=== PATIENT | female | born 1965 | race American Indian/Alaskan Native ===

== ENCOUNTER 2019-10-12 08:53 | Emergency (ER) | payer BC ==
[2019-10-12 08:59] VITALS: BP 188/103
--- NOTE | 2019-10-12 09:00 | Emergency Department Report ---
Stated Complaint: L THUMB INJURY Time Seen by Provider: 10/12/19 08:55 - HPI History of Present Illness: 54 y/o female comes in for non traumatic left thumb pain times 2 day. - ROS Review of Systems: left thumb pain - Exam Physical Exam: AxO times 3 NAD left thumb TTP. mild swelling MSE screening note: Focused history and physical exam performed. Due to findings the following was ordered: Patient stable with FROM of thumb can follow up at urgent care ED Disposition for MSE Condition: Stable
== END 2019-10-12 09:48 | disposition home or self-care (01) ==
LOC: ED 08:53
DX: M79.645 Pain in left finger(s) (principal); M79.89 Other specified soft tissue disorders
CPT/HCPCS: 99281

== ENCOUNTER 2021-07-07 15:40 | Inpatient (IN) | payer SELFPAY ==
[2021-07-07] MEDS ORDERED: ACETAMINOPHEN 325 MG TAB ONE (16:19)
[2021-07-07] MEDS ORDERED: ACETAMINOPHEN 325 MG TAB PO ONE (16:19)
--- NOTE | 2021-07-07 16:19 | Event Note ---
ED Screening Note Date of service: 07/07/21 Time: 16:14 ED Screening Note: 56-year-old -[place] female presents to the emergency room complaining of dysuria urinary urgency frequency x4 days. Patient reports pain is worse on the right side. Has had some nausea was noted to have fever. She does have a past medical history of hypertension tachycardic and depression. Unfortunate patient has been unemployed and without insurance and has not been able to follow-up on her chronic diseases. Patient is menopausal. This initial assessment/diagnostic orders/clinical plan/treatment(s) is/are subject to change based on patients health status, clinical progression and re- assessment by fellow clinical providers in the ED. Further treatment and workup at subsequent clinical providers discretion. Patient/guardian urged not to elope from the ED as their condition may be serious if not clinically assessed and managed. Initial orders include:
[2021-07-07 16:50] LABS: Bacteria,Urine 1+ /HPF (Negative); Bilirubin,Urine NEG (Negative); Blood,Urine MOD (Negative); Color,Urine Yellow (Yellow); Urobilinogen,Urine < 2.0 mg/dL (<2.0)
[2021-07-07 16:59] LABS: WBC,Urine > 182.0 /HPF (0.0-6.0)
--- NOTE | 2021-07-07 17:04 | Emergency Department Report ---
ED Female HPI - General Chief complaint: Urogenital-Female Stated complaint: POSS UTI Time Seen by Provider: 07/07/21 16:58 Source: patient Mode of arrival: Ambulatory - History of Present Illness Initial comments: 56-year-old female with a past medical history of hypertension and sinus tachycardia and depression presents to the ER today with complaints of UTI symptoms. Patient states that her symptoms started about 4 days ago. She reports urinary urgency, dysuria, urinary frequency, suprapubic abdominal pain and right flank pain. She reports nausea but no vomiting. She denies any apparent fever or chills at home. She denies any bowel changes. She denies any abnormal vaginal discharge. She states that her last menstrual cycle was May 2021. She states that she is not . She is not currently on any control. She does not have a history of recurrent UTIs. Patient states that she has been noncompliant with her blood pressure medications and ant idepressants since August 2021. Complaint: dysuria -: Gradual, days(s) (4) - Related Data Allergies Allergy/AdvReac Type Severity Reaction Status Date / Time No Known Allergies Allergy Unverified 10/12/19 08:55 ED Review of Systems ROS: Stated complaint: POSS UTI Other details as noted in HPI Comment: All other systems reviewed and negative Constitutional: denies: chills, fever Eyes: denies: eye pain, eye discharge, vision change ENT: denies: ear pain, throat pain, dental pain, hearing loss, epistaxis, congestion Respiratory: denies: cough, orthopnea, shortness of breath, SOB with exertion, SOB at rest, wheezing Cardiovascular: denies: chest pain, palpitations, dyspnea on exertion, edema, syncope, paroxysmal nocturnal dyspnea Endocrine: no symptoms reported Gastrointestinal: abdominal pain. denies: nausea, vomiting, diarrhea, constipation, hematemesis, melena, hematochezia Genitourinary: urgency, dysuria, frequency. denies: hematuria, abnormal menses, dyspareunia Musculoskeletal: back pain Skin: denies: rash, lesions, change in color, change in hair/nails, pruritus Neurological: denies: headache, weakness, numbness, paresthesias, confusion, abnormal gait, vertigo Psychiatric: denies: anxiety, depression, auditory hallucinations, visual hallucinations, homicidal thoughts, suicidal thoughts Hematological/Lymphatic: denies: easy bleeding, easy bruising ED Past Medical Hx - Past Medical History Previous Medical History?: Yes Hx Hypertension: Yes - Surgical History Additional Surgical History: d&c - Social History Smoking Status: Current Every Day Smoker Substance Use Type: Prescribed ED Physical Exam - General Limitations: No Limitations General appearance: alert, in no apparent distress - Head Head exam: Present: atraumatic, normocephalic, normal inspection - Eye Eye exam: Present: normal appearance, PERRL, EOMI Pupils: Present: normal accommodation - ENT ENT exam: Present: normal exam, mucous membranes moist, TM's normal bilaterally - Neck Neck exam: Present: normal inspection, full ROM - Respiratory Respiratory exam: Present: normal lung sounds bilaterally. Absent: respiratory distress, wheezes, rales, rhonchi - Cardiovascular Cardiovascular Exam: Present: regular rate, normal rhythm, normal heart sounds - GI/Abdominal GI/Abdominal exam: Present: soft, tenderness (Suprapubic). Absent: distended, rebound, rigid - Back Exam Back exam: Present: normal inspection, full ROM. Absent: CVA tenderness (R), CVA tenderness (L) - Neurological Exam Neurological exam: Present: alert, oriented X3, CN II-XII intact, normal gait - Psychiatric Psychiatric exam: Present: normal affect, normal mood ED Course Vital Signs 07/07/21 07/07/21 15:58 20:12 Temperature 100.1 F H 101.8 F H Pulse Rate 125 H 148 H Respiratory 18 20 Rate Blood Pressure 196/100 192/106 O2 Sat by Pulse 100 99 Oximetry ED Medical Decision Making - Lab Data Result diagrams: 07/07/21 17:18 07/07/21 17:18 - Radiology Data Radiology results: report reviewed Patient: EULALIO CAPONE MR#: [id number] 2 : 1965 Acct:[id number] Age/Sex: 56 / F ADM Date: 07/07/21 Loc: ED Attending Dr: Ordering Physician: TIMO DUGAN Date of Service: 07/07/21 Procedure(s): CT abdomen pelvis wo con Accession Number(s): [id number] cc: TIMO DUGAN CT abdomen pelvis wo con INDICATION / CLINICAL INFORMATION: Right flank pain/fever. TECHNIQUE: Routine CT abdomen pelvis without contrast All CT scans at this location are performed using CT dose reduction for ALARA by means of automated exposure control. COMPARISON: None available. FINDINGS: Abdomen and pelvis: Liver is borderline fatty. The gallbladder, spleen, pancreas adrenal glands are unremarkable. There is some subtle asymmetric perinephric stranding involving the right kidney and proximal right collecting system with respect to the left kidney. No obstructive ureteral calculus identified. Scattered atherosclerotic calcification throughout the abdominal aorta. No bowel obstruction. The appendix is unremarkable. Urinary bladder is partially fluid distended. There appears to be slight urinary bladder wall thickening. IMPRESSION: Right-sided kidney and ureteral stranding is suspicious for underlying inflammation. Pyelonephritis is not excluded. Slight urinary bladder wall thickening could be seen with infectious cystitis. Signer Name: Miguel Ángel Santo MD Signed: 07/07/2021 7:47 PM Workstation Name: [id number] Transcribed By: REGGIE Dictated By: Miguel Ángel Santo MD Electronically Authenticated By: Miguel Ángel Santo MD Signed Date/Time: 07/07/211946 DD/ 43 TD/TT: - Medical Decision Making 2102: Patient work up is concerning for pyelonephritis on CT abdomen and pelvis with elevated white count of 13, patient also remains febrile despite oral Tylenol and she is also tachycardic. Blood cultures and lactic acid ordered. Patient does have an underlying history of sinus tachycardia and used to be on a tenolol, but suspect that the fever of 101 is contributing to her tachycardia. Patient blood pressure also remains elevated. Patient does have a history of hypertension but has been noncompliant with her medications since August. Patient initial blood sugar was 398, patient denied any history of diabetes, and the last time she ate was at 10:00 this morning. Her repeat BS after 1 L of IV fluids was 314, 5 units of insulin was ordered IV. Case discussed with Dr Escoto, he agree that patient needs to be admitted. He recommends giving patient had a IV fluid bolus and IV medications for her BP. IV labetalol ordered. Patient currently sitting in chair comfortably. She is not toxic or in any s ignificant distress at this time. Discussed all lab results/CT results, and reason for admission with patient. Pt expressed understand and agrees with plan. 2130: Case discussed with ANGUS Clark hospitalist working with Dr Baker (Hospitalist) for admission. Critical care attestation.: If time is entered above; I have spent that time in minutes in the direct care of this critically ill patient, excluding procedure time. ED Disposition Clinical Impression: Pyelonephritis, Diabetes mellitus, new onset, Uncontrolled hypertension, Non compliance w medication regimen Disposition: ADMITTED INPATIENT Is pt being admited?: Yes Does the pt Need Aspirin: No Instructions: Diabetes Mellitus Type 2 in Adults (ED), Hypertension (ED) Referrals: PRIMARY CARE, [Primary Care Provider] - 3-5 Days
[2021-07-07 17:58] LABS: Alanine Aminotransferase 15 units/L (7-56); Albumin 4.3 g/dL (3.9-5); Blood Urea Nitrogen 11 mg/dL (7-17); Calcium 9.8 mg/dL (8.4-10.2); Hemolysis Index 6
[2021-07-07 18:03] LABS: BUN/Creatinine Ratio 16
[2021-07-07 18:11] LABS: Basophils # (Auto) 0.1 K/mm3 (0.0-0.1); Basophils % (Auto) 0.4 % (0.0-1.8); Eosinophils # (Auto) 0.1 K/mm3 (0.0-0.4); Eosinophils % (Auto) 0.4 % (0.0-4.3); Hematocrit 44.8 % (30.3-42.9); Hemoglobin 15.3 gm/dl (10.1-14.3); Lymphocytes # (Auto) 3.5 K/mm3 (1.2-5.4); Lymphocytes % (Auto) 26.4 % (13.4-35.0); Mean Corpuscular HGB Conc 34 % (30-34); Mean Corpuscular Volume 94 fl (79-97); Monocytes # (Auto) 1.2 K/mm3 (0.0-0.8); Monocytes % (Auto) 8.8 % (0.0-7.3); Platelet Count 267 K/mm3 (140-440); Red Blood Count 4.75 M/mm3 (3.65-5.03); Red Cell Distribution Width 13.2 % (13.2-15.2)
[2021-07-07] MEDS ORDERED: SODIUM CHLORIDE 0.9% 1000 ML 2,000 ML IV ONE (18:42)
[2021-07-07] MEDS ORDERED: SODIUM CHLORIDE 0.9% 1000 ML 1,000 ML IV ONE (18:43)
[2021-07-07] MEDS ORDERED: ONDANSETRON 4 MG/2 ML INJ IV ONE (18:43)
[2021-07-07] MEDS ORDERED: MORPHINE 4 MG/1 ML INJ IV ONE (18:43)
[2021-07-07] MEDS ORDERED: cefTRIAXone/NS 1 GM/50 ML 1 GM/50 ML BAG IV ONE (18:44)
[2021-07-07] MEDS ORDERED: INSULIN REGULAR, HUMAN 100 UNITS/1 ML IV ONE (18:44)
--- NOTE | 2021-07-07 19:51 | Cat Scan Report ---
CT abdomen pelvis wo con INDICATION / CLINICAL INFORMATION: Right flank pain/fever. TECHNIQUE: Routine CT abdomen pelvis without contrast All CT scans at this location are performed using CT dose reduction for ALARA by means of automated exposure control. COMPARISON: None available. FINDINGS: Abdomen and pelvis: Liver is borderline fatty. The gallbladder, spleen, pancreas adrenal glands are u nremarkable. There is some subtle asymmetric perinephric stranding involving the right kidney and pro ximal right collecting system with respect to the left kidney. No obstructive ureteral calculus ident ified. Scattered atherosclerotic calcification throughout the abdominal aorta. No bowel obstruction. The hi endix is unremarkable. Urinary bladder is partially fluid distended. There appears to be slight urina ry bladder wall thickening. IMPRESSION: Right-sided kidney and ureteral stranding is suspicious for underlying inflammation. Pyel onephritis is not excluded. Slight urinary bladder wall thickening could be seen with infectious cyst itis. Signer Name: Miguel Ángel Santo MD Signed: 07/07/2021 7:47 PM Workstation Name: [id number]
[2021-07-07] MEDS ORDERED: IBUPROFEN 600 MG TAB PO ONE (20:19)
[2021-07-07] MEDS ORDERED: cloNIDine 0.2 MG TAB PO ONE (20:22)
[2021-07-07] MEDS ORDERED: ALUM-MAG HYDROXIDE-SIMETHICONE 200-200-20MG/5ML ORAL LIQD 30 ML PO PRN (23:16)
[2021-07-07] MEDS ORDERED: NALOXONE 0.4 MG/1 ML INJ IV PRN (23:16)
[2021-07-07] MEDS ORDERED: MAGNESIUM HYDROXIDE (MOM) ORAL LIQD UDC PO PRN (23:16)
[2021-07-07] MEDS ORDERED: oxyCODONE /ACETAMINOPHEN 5-325MG TAB PO PRN (23:16)
[2021-07-07] MEDS ORDERED: SENNOSIDES 8.6 MG TAB PO PRN (23:16)
[2021-07-07] MEDS ORDERED: ACETAMINOPHEN 325 MG TAB PO PRN (23:16)
[2021-07-07] MEDS ORDERED: METOCLOPRAMIDE 10 MG/2 ML INJ IV PRN (23:16)
[2021-07-07] MEDS ORDERED: ONDANSETRON 4 MG/2 ML INJ IV PRN (23:16)
[2021-07-07] MEDS ORDERED: MORPHINE 2 MG/1 ML INJ IV PRN (23:16)
[2021-07-07] MEDS ORDERED: ALBUTEROL 2.5 MG/3 ML NEBU IH PRN (23:16)
[2021-07-07] MEDS ORDERED: hydrALAZINE 20 MG/1 ML INJ IV PRN (23:25)
[2021-07-07] MEDS ORDERED: traZODone 50 MG TAB PO PRN (23:25)
--- NOTE | 2021-07-07 23:34 | History and Physical Report ---
History of Present Illness Date of examination: 07/07/21 Date of admission: 07/07/21 21:28 Chief complaint: flank abdominal pain Burning on Urination History of present illness: This is a 56-year-old female seen in ED at bedside. She came to the emergency room with chief complaint of pain and burning sensation on urination and flank pain. She has a past medical history of hypertension, sinus tachycardia, and depression. Patient states that her symptoms started about 4 days ago. She also reports urinary urgency, dysuria, urinary frequency, suprapubic abdominal pain. She reports nausea but no vomiting. She denies any apparent fever or chills at home. She admits to tobacco use about half pack daily, she denies any abnormal vaginal discharge. Reviewed the medical record, medication administration, and vital signs. Patient blood pressure is elevated 190s systolic notes her heart rate is elevated. Also patient blood sugar 386 in ED and lactic acid 2.50. Patient admits that she has been noncompliant with her blood pressure medication and antibiotics anxiety medication. Complication of noncompliance see explained to patient. Past History Past Medical History: diabetes, hypertension Past Surgical History: No surgical history Social history: lives with family, smoking, full code. denies: alcohol abuse, IV drug use Family history: no significant family history Medications and Allergies Allergies Allergy/AdvReac Type Severity Reaction Status Date / Time No Known Allergies Allergy Unverified 10/12/19 08:55 Active Meds: Active Medications Acetaminophen (Acetaminophen 325 Mg Tab) 650 mg PO Q4H PRN PRN Reason: Pain MILD(1-3)/Fever >100.5/CERDA Acetaminophen (Acetaminophen 325 Mg Tab) 650 mg PO Q6H PRN PRN Reason: Pain, Mild (1-3) Al Hydrox/Mg Hydrox/Simethicone (Alum-Mag Hydroxide-Simethicone [phone]/5ml Oral Liqd 30 Ml) 30 ml PO Q4H PRN PRN Reason: Indigestion Albuterol (Albuterol 2.5 Mg/3 Ml Nebu) 2.5 mg IH Q4HRT PRN PRN Reason: Shortness Of Breath Atenolol (Atenolol 50 Mg Tab) 50 mg PO QDAY MITZY Enoxaparin Sodium (Enoxaparin 40 Mg/0.4 Ml Inj) 40 mg SUB-Q QDAY MITZY Famotidine (Famotidine 20 Mg/2 Ml Inj) 20 mg IV BID [facility] Hydralazine HCl (Hydralazine 20 Mg/1 Ml Inj) 5 mg IV Q4HR PRN PRN Reason: Hypertension Sodium Chloride (Nacl 0.9% 1000 Ml) 1,000 mls @ 42 mls/hr IV DIRECT MITZY Ceftriaxone Sodium (Rocephin/Ns 1 Gm/50 Ml) 1 gm in 50 mls @ 100 mls/hr IV Q24H [facility]; Protocol Stop: 07/10/21 00:14 Insulin Human Lispro (Insulin Lispro 100 Unit/Ml) 0 unit SUB-Q ACHS MITZY; Protocol Magnesium Hydroxide (Magnesium Hydroxide (Mom) Oral Liqd Udc) 30 ml PO Q4H PRN PRN Reason: Constipation Metoclopramide HCl (Metoclopramide 10 Mg/2 Ml Inj) 10 mg IV Q6H PRN PRN Reason: Nausea And Vomiting Morphine Sulfate (Morphine 2 Mg/1 Ml Inj) 2 mg IV Q4H PRN PRN Reason: Pain, Moderate (4-6) Naloxone HCl (Naloxone 0.4 Mg/1 Ml Inj) 0.1 mg IV Q2MIN PRN PRN Reason: Res Rate </= 8 or 02 SAT < 92% Ondansetron HCl (Ondansetron 4 Mg/2 Ml Inj) 4 mg IV Q8H PRN PRN Reason: Nausea And Vomiting Oxycodone/Acetaminophen (Oxycodone /Acetaminophen 5-325mg Tab) 1 tab PO Q6H PRN PRN Reason: Pain, Moderate (4-6) Senna (Sennosides 8.6 Mg Tab) 8.6 mg PO Q12HR PRN PRN Reason: Constipation Sodium Chloride (Sodium Chloride 0.9% 10 Ml Flush Syringe) 10 ml IV BID [facility] Trazodone HCl (Trazodone 50 Mg Tab) 50 mg PO QHS PRN PRN Reason: Insomnia Review of Systems Constitutional: fatigue, weakness Ears, nose, mouth and throat: no epistaxis, no bleeding gums Cardiovascular: no shortness of breath Gastrointestinal: abdominal pain, nausea, no coffee ground emesis, no melena Genitourinary Female: pelvic pain, flank pain, dysuria, urinary frequency, urgency Rectal: no hemorrhoids Musculoskeletal: no myalgias, no atrophy Integumentary: no rash, no pruritis, no redness Psychiatric: no suicidal ideation, no disorientation, no hallucinations Hematologic/Lymphatic: no easy bruising, no easy bleeding Allergic/Immunologic: no urticaria, no allergic rhinitis Exam - Constitutional Vitals: Temp Pulse Resp BP Pulse Ox 101.8 F H 148 H 20 192/106 99 07/07/21 20:12 07/07/21 20:12 07/07/21 20:12 07/07/21 20:12 07/07/21 20:12 General appearance: Present: mild distress, obese - EENT Eyes: Present: PERRL ENT: hearing intact, clear oral mucosa - Neck Neck: Present: supple, normal ROM - Respiratory Respiratory effort: normal Respiratory: bilateral: CTA - Cardiovascular Heart Sounds: Present: S1 & S2. Absent: rub, click - Extremities Extremities: pulses symmetrical, No edema Peripheral Pulses: within normal limits - Abdominal General gastrointestinal: Present: soft, tender, non-distended, normal bowel sounds, other (Flank pain on palpation) Female genitourinary: Present: normal - Integumentary Integumentary: Present: clear, warm, dry - Musculoskeletal Musculoskeletal: gait normal, strength equal bilaterally - Psychiatric Psychiatric: appropriate mood/affect, intact judgment & insight, cooperative, other (Anxiety disorder) - Neurologic Neurologic: CNII-XII intact, moves all extremities - Allied Health Allied health notes reviewed: nursing Results - Labs CBC & Chem 7: 07/07/21 17:18 07/07/21 17:18 Labs: Abnormal lab results 07/07/21 07/07/21 07/07/21 Range/Units 17:18 17:18 18:38 WBC 13.4 H (4.5-11.0) K/mm3 Hgb 15.3 H (10.1-14.3) gm/dl Hct 44.8 H (30.3-42.9) % Love % (Auto) 8.8 H (0.0-7.3) % Love # (Auto) 1.2 H (0.0-0.8) K/mm3 Seg Neutrophils # 8.6 H (1.8-7.7) K/mm3 Sodium 133 L (137-145) mmol/L Carbon Dioxide 20 L (22-30) mmol/L Glucose 386 H (65-100) mg/dL POC Glucose 314 H (70-105) mg/dL Lactic Acid (0.7-2.0) mmol/L Urine WBC (Auto) (0.0-6.0) /HPF 07/07/21 07/07/21 07/07/21 Range/Units 20:14 20:22 Unknown WBC (4.5-11.0) K/mm3 Hgb (10.1-14.3) gm/dl Hct (30.3-42.9) % Love % (Auto) (0.0-7.3) % Love # (Auto) (0.0-0.8) K/mm3 Seg Neutrophils # (1.8-7.7) K/mm3 Sodium (137-145) mmol/L Carbon Dioxide (22-30) mmol/L Glucose (65-100) mg/dL POC Glucose 320 H (70-105) mg/dL Lactic Acid 2.50 H* (0.7-2.0) mmol/L Urine WBC (Auto) > 182.0 H (0.0-6.0) /HPF Assessment and Plan - Patient Problems (1) Pyelonephritis Current Visit: Yes Status: Acute Plan to address problem: Started on antibiotic and IV hydration Blood and urine culture follow-up with results CT of the abdomen/pelvispositive for pyelonephritis (2) Uncontrolled hypertension Current Visit: Yes Status: Acute Plan to address problem: Monitor blood pressure Resume home antihypertensive As needed hydralazine (3) Diabetes mellitus, new onset Current Visit: Yes Status: Acute Plan to address problem: Monitor blood sugar with sliding scale protocol Patient is normal no need home anti hypoglycemia Check hemoglobin A1c patient advised to follow-up with her primary care physician post discharge (4) Non compliance w medication regimen Current Visit: Yes Status: Acute Plan to address problem: Discussed importance of compliance with medical regimen Patient voiced understanding (5) Tobacco abuse Current Visit: Yes Status: Acute Plan to address problem: Discussed tobacco use cessation Patient admits tobacco use about half a pack daily 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 Patient voiced understanding (6) Leukocytosis Current Visit: Yes Status: Acute Plan to address problem: Likely secondary to UTI Elevated lactic acidcontinue antibiotic therapy and gentle IV hydration Monitor WBC (7) DVT prophylaxis Current Visit: Yes Status: Acute Plan to address problem: Subcutaneous Lovenox
[2021-07-08] MEDS: atenoloL 50 MG TAB PO SCH ×2 (00:49→10:55)
[2021-07-08] MEDS: FAMOTIDINE 20 MG/2 ML INJ IV SCH ×3 (00:49→22:16)
[2021-07-08 06:39] LABS: Basophils % (Auto) 0.4 % (0.0-1.8); Eosinophils # (Auto) 0.1 K/mm3 (0.0-0.4); Eosinophils % (Auto) 0.8 % (0.0-4.3); Hemoglobin 14.1 gm/dl (10.1-14.3); Lymphocytes # (Auto) 3.1 K/mm3 (1.2-5.4); Lymphocytes % (Auto) 28.8 % (13.4-35.0); Mean Corpuscular HGB Conc 34 % (30-34); Mean Corpuscular Volume 96 fl (79-97); Monocytes # (Auto) 0.8 K/mm3 (0.0-0.8); Monocytes % (Auto) 7.2 % (0.0-7.3); Platelet Count 230 K/mm3 (140-440); Red Blood Count 4.29 M/mm3 (3.65-5.03); Red Cell Distribution Width 13.1 % (13.2-15.2)
[2021-07-08 06:54] LABS: Alanine Aminotransferase 14 units/L (7-56); Albumin 3.8 g/dL (3.9-5); Blood Urea Nitrogen 11 mg/dL (7-17); Calcium 8.8 mg/dL (8.4-10.2); Hemolysis Index 18
[2021-07-08 06:55] LABS: BUN/Creatinine Ratio 18
[2021-07-08] MEDS: INSULIN LISPRO 100 UNIT/ML SUB-Q SCH ×4 (08:01→22:17)
--- NOTE | 2021-07-08 08:52 | Progress Note ---
Assessment and Plan Assessment and plan: -- Pyelonephritis Current Visit: Yes Status: Acute Plan to address problem: Started on antibiotic and IV hydration Blood and urine culture follow-up with results CT of the abdomen/pelvispositive for pyelonephritis --Febrile illness /PUI ; Covid test is negative Current Visit: Yes Status: Acute Santoro PCR test negative DC isolation, supportive care -- Uncontrolled hypertension Current Visit: Yes Status: Acute Plan to address problem: Monitor blood pressure Resume home antihypertensive As needed hydralazine -- Diabetes mellitus, new onset Current Visit: Yes Status: Acute Plan to address problem: Patient's blood sugars in 300s Add long-acting insulin Novolin 70/30 10 units twice a day and adjust as needed Patient is normal no need home anti hypoglycemia Patient's hemoglobin A1c is 11.7 Diabetic education nutrition education prior to discharge Possible home health nurse for disease monitoring at discharge -- Non compliance w medication regimen Current Visit: Yes Status: Acute Plan to address problem: Discussed importance of compliance with medical regimen Patient voiced understanding -- Tobacco abuse Current Visit: Yes Status: Acute Plan to address problem: Discussed tobacco use cessation Patient admits tobacco use about half a pack daily 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 Patient voiced understanding -- Leukocytosis Current Visit: Yes Status: Acute Plan to address problem: Likely secondary to UTI Elevated lactic acidcontinue antibiotic therapy and gentle IV hydration Monitor WBC --Morbid obesity ; BMI 43.1 advised diet modification exercise as tolerated and weight reduction when medically stable Also advised lifestyle changes And check with bariatric consultation for weight reduction program as outpatient --DVT prophylaxis Current Visit: Yes Status: Acute Plan to address problem: Subcutaneous Lovenox We will closely monitor the patient and adjust management as needed Plan of care reviewed with the patient and her nurse History Interval history: I have seen and examined the patient at the bedside COVID-19 test is negative Patient complains of generalized weakness Denies nausea vomiting Hospitalist Physical - Constitutional Vitals: Temp Pulse Resp BP Pulse Ox 101.8 F H 85 20 127/73 99 07/07/21 20:12 07/08/21 00:49 07/07/21 20:12 07/08/21 00:49 07/07/21 20:12 General appearance: Present: mild distress, obese - EENT Eyes: Present: PERRL, EOM intact - Neck Neck: Present: supple, normal ROM - Respiratory Respiratory effort: normal Respiratory: bilateral: diminished, negative: rales, rhonchi, wheezing - Cardiovascular Rhythm: regular Heart Sounds: Present: S1 & S2 - Extremities Extremities: no ischemia, No edema - Abdominal General gastrointestinal: soft, non-tender, non-distended, normal bowel sounds - Integumentary Integumentary: Present: clear, warm - Psychiatric Psychiatric: appropriate mood/affect, cooperative - Neurologic Neurologic: CNII-XII intact, moves all extremities Results - Labs CBC & Chem 7: 07/08/21 05:18 07/08/21 05:18 Labs: Laboratory Last Values WBC 10.7 K/mm3 (4.5-11.0) 07/08/21 05:18 RBC 4.29 M/mm3 (3.65-5.03) 07/08/21 05:18 Hgb 14.1 gm/dl (10.1-14.3) 07/08/21 05:18 Hct 41.0 % (30.3-42.9) 07/08/21 05:18 MCV 96 fl (79-97) 07/08/21 05:18 MCH 33 pg (28-32) H 07/08/21 05:18 MCHC 34 % (30-34) 07/08/21 05:18 RDW 13.1 % (13.2-15.2) L 07/08/21 05:18 Plt Count 230 K/mm3 (140-440) 07/08/21 05:18 Lymph % (Auto) 28.8 % (13.4-35.0) 07/08/21 05:18 [place] % (Auto) 7.2 % (0.0-7.3) 07/08/21 05:18 Eos % (Auto) 0.8 % (0.0-4.3) 07/08/21 05:18 Baso % (Auto) 0.4 % (0.0-1.8) 07/08/21 05:18 Lymph # (Auto) 3.1 K/mm3 (1.2-5.4) 07/08/21 05:18 [place] # (Auto) 0.8 K/mm3 (0.0-0.8) 07/08/21 05:18 Eos # (Auto) 0.1 K/mm3 (0.0-0.4) 07/08/21 05:18 Baso # (Auto) 0.0 K/mm3 (0.0-0.1) 07/08/21 05:18 Seg Neutrophils % 62.8 % (40.0-70.0) 07/08/21 05:18 Seg Neutrophils # 6.7 K/mm3 (1.8-7.7) 07/08/21 05:18 Sodium 136 mmol/L (137-145) L 07/08/21 05:18 Potassium 4.1 mmol/L (3.6-5.0) 07/08/21 05:18 Chloride 102.8 mmol/L (98-107) 07/08/21 05:18 Carbon Dioxide 21 mmol/L (22-30) L 07/08/21 05:18 Anion Gap 16 mmol/L 07/08/21 05:18 BUN 11 mg/dL (7-17) 07/08/21 05:18 Creatinine 0.6 mg/dL (0.6-1.2) 07/08/21 05:18 Estimated GFR > 60 ml/min 07/08/21 05:18 BUN/Creatinine Ratio 18 % 07/08/21 05:18 Glucose 399 mg/dL (65-100) H 07/08/21 05:18 POC Glucose 290 mg/dL (70-105) H 07/08/21 08:00 Hemoglobin A1c 11.7 % (4-6) H 07/08/21 00:02 Lactic Acid 1.40 mmol/L (0.7-2.0) 07/08/21 00:02 Calcium 8.8 mg/dL (8.4-10.2) 07/08/21 05:18 Total Bilirubin 0.50 mg/dL (0.1-1.2) 07/08/21 05:18 AST 12 units/L (5-40) 07/08/21 05:18 ALT 14 units/L (7-56) 07/08/21 05:18 Alkaline Phosphatase 90 units/L (35-129) 07/08/21 05:18 Total Protein 7.8 g/dL (6.3-8.2) 07/08/21 05:18 Albumin 3.8 g/dL (3.9-5) L 07/08/21 05:18 Albumin/Globulin Ratio 1.0 % 07/08/21 05:18 Urine Color Yellow (Yellow) 07/07/21 Unknown Urine Turbidity Cloudy (Clear) 07/07/21 Unknown Urine pH 6.0 (5.0-7.0) 07/07/21 Unknown Ur Specific [place] 1.023 (1.003-1.030) 07/07/21 Unknown Urine Protein 30 mg/dl mg/dL (Negative) 07/07/21 Unknown Urine Glucose (UA) >=500 mg/dL (Negative) 07/07/21 Unknown Urine Ketones Neg mg/dL (Negative) 07/07/21 Unknown Urine Blood Mod (Negative) 07/07/21 Unknown Urine Nitrite Neg (Negative) 07/07/21 Unknown Urine Bilirubin Neg (Negative) 07/07/21 Unknown Urine Urobilinogen < 2.0 mg/dL (<2.0) 07/07/21 Unknown Ur Leukocyte Esterase Lg (Negative) 07/07/21 Unknown Urine WBC (Auto) > 182.0 /HPF (0.0-6.0) H 07/07/21 Unknown Urine RBC (Auto) 32.0 /HPF (0.0-6.0) 07/07/21 Unknown U Epithel Cells (Auto) 6.0 /HPF (0-13.0) 07/07/21 Unknown Urine Bacteria (Auto) 1+ /HPF (Negative) 07/07/21 Unknown Urine WBC Clumps 3+ /HPF 07/07/21 Unknown Urine Yeast (Budding) 2+ /HPF 07/07/21 Unknown Blood Type B POSITIVE 07/08/21 00:02 Antibody Screen Negative 07/08/21 00:02 Microbiology: Microbiology 07/07/21 20:22 Peripheral/Venous Blood Culture - Preliminary Culture in Progress 07/07/21 20:22 Peripheral/Venous Blood Culture - Preliminary Culture in Progress Active Medications - Current Medications Current Medications: Generic Name Dose Route Start Last Admin Trade Name Freq PRN Reason Stop Dose Admin Acetaminophen 650 mg 07/07/21 23:16 Acetaminophen 325 Mg Tab PO Q4H PRN Pain MILD(1-3)/Fever >100.5/CERDA Al Hydrox/Mg Hydrox/Simethicone 30 ml 07/07/21 23:16 Alum-Mag Hydroxide-Simethicone [id number]/5ml Oral Liqd 30 Ml PO Q4H PRN Indigestion Albuterol 2.5 mg 07/07/21 23:16 Albuterol 2.5 Mg/3 Ml Nebu IH Q4HRT PRN Shortness Of Breath Atenolol 50 mg 07/07/21 23:00 07/08/21 00:49 Atenolol 50 Mg Tab PO 50 mg QDAY MITZY Administration Enoxaparin Sodium 40 mg 07/08/21 10:00 Enoxaparin 40 Mg/0.4 Ml Inj SUB-Q QDAY MITZY Famotidine 20 mg 07/07/21 23:45 07/08/21 00:49 Famotidine 20 Mg/2 Ml Inj IV 20 mg BID MITZY Administration Hydralazine HCl 5 mg 07/07/21 23:25 Hydralazine 20 Mg/1 Ml Inj IV Q4H PRN Hypertension Sodium Chloride 1,000 mls @ 42 mls/hr 07/07/21 23:30 Nacl 0.9% 1000 Ml IV DIRECT MITZY Ceftriaxone Sodium 1 gm in 50 mls @ 100 mls/hr 07/08/21 10:00 Rocephin/Ns 1 Gm/50 Ml IV 07/10/21 10:29 Q24H MITZY Protocol Insulin Human Lispro 0 unit 07/08/21 07:30 07/08/21 08:01 Insulin Lispro 100 Unit/Ml SUB-Q 3 unit ACHS MITZY Administration Protocol Magnesium Hydroxide 30 ml 07/07/21 23:16 Magnesium Hydroxide (Mom) Oral Liqd Udc PO Q4H PRN Constipation Metoclopramide HCl 10 mg 07/07/21 23:16 Metoclopramide 10 Mg/2 Ml Inj IV Q6H PRN Nausea And Vomiting Morphine Sulfate 2 mg 07/07/21 23:16 Morphine 2 Mg/1 Ml Inj IV Q4H PRN Pain, Moderate (4-6) Naloxone HCl 0.1 mg 07/07/21 23:16 Naloxone 0.4 Mg/1 Ml Inj IV Q2MIN PRN Res Rate </= 8 or 02 SAT < 92% Ondansetron HCl 4 mg 07/07/21 23:16 Ondansetron 4 Mg/2 Ml Inj IV Q8H PRN Nausea And Vomiting Oxycodone/Acetaminophen 1 tab 07/07/21 23:16 Oxycodone /Acetaminophen 5-325mg Tab PO Q6H PRN Pain, Moderate (4-6) Senna 8.6 mg 07/07/21 23:16 Sennosides 8.6 Mg Tab PO Q12HR PRN Constipation Sodium Chloride 10 ml 07/08/21 10:00 Sodium Chloride 0.9% 10 Ml Flush Syringe IV BID MITZY Trazodone HCl 50 mg 07/07/21 23:25 Trazodone 50 Mg Tab PO QHS PRN Insomnia
[2021-07-08] MEDS ORDERED: cefTRIAXone/NS 1 GM/50 ML 1 GM/50 ML BAG IV SCH (10:00)
[2021-07-08] MEDS: ENOXAPARIN 40 MG/0.4 ML INJ SUB-Q SCH (10:15)
[2021-07-08] MEDS: INSULIN NPH/REGULAR 70/30 INJ SUB-Q SCH (17:03)
[2021-07-08] MEDS: ACETAMINOPHEN 325 MG TAB PO PRN (21:36)
[2021-07-08] MEDS: SODIUM CHLORIDE 0.9% 1000 ML 1,000 ML IV SCH (22:16)
[2021-07-09] MEDS: ACETAMINOPHEN 325 MG TAB PO PRN ×2 (04:31→21:31)
[2021-07-09] MEDS: cefTRIAXone/NS 2 GM/100 ML 2 GM/100 ML BAG IV SCH (10:28)
[2021-07-09] MEDS: ENOXAPARIN 40 MG/0.4 ML INJ SUB-Q SCH (10:28)
[2021-07-09] MEDS: FAMOTIDINE 20 MG/2 ML INJ IV SCH ×2 (10:28→21:31)
[2021-07-09] MEDS: atenoloL 50 MG TAB PO SCH (10:28)
[2021-07-09] MEDS: INSULIN NPH/REGULAR 70/30 INJ SUB-Q SCH ×2 (10:28→17:22)
[2021-07-09] MEDS: INSULIN LISPRO 100 UNIT/ML SUB-Q SCH ×4 (10:29→21:40)
--- NOTE | 2021-07-09 12:46 | Progress Note ---
Assessment and Plan Assessment and plan: --Urine cultures positive for gram-negative rods Current Visit: Yes Status: Acute Continue current empiric antibiotics Follow culture sensitivities and adjust -- Pyelonephritis Current Visit: Yes Status: Acute Plan to address problem: Started on antibiotic and IV hydration urine culture gram-negative rods CT of the abdomen/pelvispositive for pyelonephritis --COVID-19 test negative Current Visit: Yes Status: Acute Santoro PCR test negative DC isolation, supportive care -- Uncontrolled hypertension Current Visit: Yes Status: Acute Plan to address problem: Monitor blood pressure Resume home antihypertensive As needed hydralazine -- Diabetes mellitus, new onset Current Visit: Yes Status: Acute Plan to address problem: Patient's blood sugars in 300s Add long-acting insulin Novolin 70/30 10 units twice a day and adjust as needed Patient is normal no need home anti hypoglycemia Patient's hemoglobin A1c is 11.7 Diabetic education nutrition education prior to discharge Possible home health nurse for disease monitoring at discharge -- Non compliance w medication regimen Current Visit: Yes Status: Acute Plan to address problem: Discussed importance of compliance with medical regimen Patient voiced understanding -- Tobacco abuse Current Visit: Yes Status: Acute Plan to address problem: Discussed tobacco use cessation Patient admits tobacco use about half a pack daily 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 Patient voiced understanding -- Leukocytosis Current Visit: Yes Status: Acute Plan to address problem: Likely secondary to UTI Elevated lactic acidcontinue antibiotic therapy and gentle IV hydration Monitor WBC --Morbid obesity ; BMI 43.1 advised diet modification exercise as tolerated and weight reduction when medically stable Also advised lifestyle changes And check with bariatric consultation for weight reduction program as outpatient --DVT prophylaxis Current Visit: Yes Status: Acute Plan to address problem: Subcutaneous Lovenox We will closely monitor the patient and adjust management as needed Plan of care reviewed with the patient and her nurse 07/09/2021; Urine cultures positive for gram-negative rods Follow culture sensitivities, adjust antibiotics Patient advised lifestyle changes dietary modification Exercise as tolerated and weight reduction when stable History Interval history: I have seen and examined the patient at the bedside Patient's chart and medications reviewed Patient feels slightly better Urine cultures positive for gram-negative rods Hospitalist Physical - Constitutional Vitals: Temp Pulse Resp BP Pulse Ox 99.0 F 83 18 134/78 97 07/09/21 11:06 07/09/21 11:06 07/09/21 11:06 07/09/21 11:06 07/09/21 12:00 General appearance: Present: mild distress, obese - EENT Eyes: Present: PERRL, EOM intact - Neck Neck: Present: supple, normal ROM - Respiratory Respiratory effort: normal Respiratory: bilateral: diminished, negative: rales, rhonchi, wheezing - Cardiovascular Rhythm: regular Heart Sounds: Present: S1 & S2 - Extremities Extremities: no ischemia, No edema - Abdominal General gastrointestinal: soft, non-tender, non-distended, normal bowel sounds - Integumentary Integumentary: Present: clear, warm - Psychiatric Psychiatric: appropriate mood/affect, cooperative - Neurologic Neurologic: CNII-XII intact, moves all extremities Results - Labs CBC & Chem 7: 07/08/21 05:18 07/08/21 05:18 Labs: Laboratory Last Values WBC 10.7 K/mm3 (4.5-11.0) 07/08/21 05:18 RBC 4.29 M/mm3 (3.65-5.03) 07/08/21 05:18 Hgb 14.1 gm/dl (10.1-14.3) 07/08/21 05:18 Hct 41.0 % (30.3-42.9) 07/08/21 05:18 MCV 96 fl (79-97) 07/08/21 05:18 MCH 33 pg (28-32) H 07/08/21 05:18 MCHC 34 % (30-34) 07/08/21 05:18 RDW 13.1 % (13.2-15.2) L 07/08/21 05:18 Plt Count 230 K/mm3 (140-440) 07/08/21 05:18 Lymph % (Auto) 28.8 % (13.4-35.0) 07/08/21 05:18 [place] % (Auto) 7.2 % (0.0-7.3) 07/08/21 05:18 Eos % (Auto) 0.8 % (0.0-4.3) 07/08/21 05:18 Baso % (Auto) 0.4 % (0.0-1.8) 07/08/21 05:18 Lymph # (Auto) 3.1 K/mm3 (1.2-5.4) 07/08/21 05:18 [place] # (Auto) 0.8 K/mm3 (0.0-0.8) 07/08/21 05:18 Eos # (Auto) 0.1 K/mm3 (0.0-0.4) 07/08/21 05:18 Baso # (Auto) 0.0 K/mm3 (0.0-0.1) 07/08/21 05:18 Seg Neutrophils % 62.8 % (40.0-70.0) 07/08/21 05:18 Seg Neutrophils # 6.7 K/mm3 (1.8-7.7) 07/08/21 05:18 Sodium 136 mmol/L (137-145) L 07/08/21 05:18 Potassium 4.1 mmol/L (3.6-5.0) 07/08/21 05:18 Chloride 102.8 mmol/L (98-107) 07/08/21 05:18 Carbon Dioxide 21 mmol/L (22-30) L 07/08/21 05:18 Anion Gap 16 mmol/L 07/08/21 05:18 BUN 11 mg/dL (7-17) 07/08/21 05:18 Creatinine 0.6 mg/dL (0.6-1.2) 07/08/21 05:18 Estimated GFR > 60 ml/min 07/08/21 05:18 BUN/Creatinine Ratio 18 % 07/08/21 05:18 Glucose 399 mg/dL (65-100) H 07/08/21 05:18 POC Glucose 292 mg/dL (70-105) H 07/09/21 11:09 Hemoglobin A1c 11.7 % (4-6) H 07/08/21 00:02 Lactic Acid 1.40 mmol/L (0.7-2.0) 07/08/21 00:02 Calcium 8.8 mg/dL (8.4-10.2) 07/08/21 05:18 Total Bilirubin 0.50 mg/dL (0.1-1.2) 07/08/21 05:18 AST 12 units/L (5-40) 07/08/21 05:18 ALT 14 units/L (7-56) 07/08/21 05:18 Alkaline Phosphatase 90 units/L (35-129) 07/08/21 05:18 Total Protein 7.8 g/dL (6.3-8.2) 07/08/21 05:18 Albumin 3.8 g/dL (3.9-5) L 07/08/21 05:18 Albumin/Globulin Ratio 1.0 % 07/08/21 05:18 Urine Color Yellow (Yellow) 07/07/21 Unknown Urine Turbidity Cloudy (Clear) 07/07/21 Unknown Urine pH 6.0 (5.0-7.0) 07/07/21 Unknown Ur Specific [place] 1.023 (1.003-1.030) 07/07/21 Unknown Urine Protein 30 mg/dl mg/dL (Negative) 07/07/21 Unknown Urine Glucose (UA) >=500 mg/dL (Negative) 07/07/21 Unknown Urine Ketones Neg mg/dL (Negative) 07/07/21 Unknown Urine Blood Mod (Negative) 07/07/21 Unknown Urine Nitrite Neg (Negative) 07/07/21 Unknown Urine Bilirubin Neg (Negative) 07/07/21 Unknown Urine Urobilinogen < 2.0 mg/dL (<2.0) 07/07/21 Unknown Ur Leukocyte Esterase Lg (Negative) 07/07/21 Unknown Urine WBC (Auto) > 182.0 /HPF (0.0-6.0) H 07/07/21 Unknown Urine RBC (Auto) 32.0 /HPF (0.0-6.0) 07/07/21 Unknown U Epithel Cells (Auto) 6.0 /HPF (0-13.0) 07/07/21 Unknown Urine Bacteria (Auto) 1+ /HPF (Negative) 07/07/21 Unknown Urine WBC Clumps 3+ /HPF 07/07/21 Unknown Urine Yeast (Budding) 2+ /HPF 07/07/21 Unknown Coronavirus (PCR) Negative (Negative) 07/08/21 10:00 Blood Type B POSITIVE 07/08/21 00:02 Antibody Screen Negative 07/08/21 00:02 Microbiology: Microbiology 07/07/21 20:22 Peripheral/Venous Blood Culture - Preliminary Gram Negative Michael 07/07/21 Unknown Urine,Clean Catch Urine Culture - Preliminary 07/07/21 20:22 Peripheral/Venous Blood Culture - Preliminary NO GROWTH AFTER 24 HOURS [place]/IV: Voiding Method Toilet Active Medications - Current Medications Current Medications: Generic Name Dose Route Start Last Admin Trade Name Brianq PRN Reason Stop Dose Admin Acetaminophen 650 mg 07/07/21 23:16 07/09/21 04:31 Acetaminophen 325 Mg Tab PO 650 mg Q4H PRN Administration Pain MILD(1-3)/Fever >100.5/CERDA Al Hydrox/Mg Hydrox/Simethicone 30 ml 07/07/21 23:16 Alum-Mag Hydroxide-Simethicone [id number]/5ml Oral Liqd 30 Ml PO Q4H PRN Indigestion Albuterol 2.5 mg 07/07/21 23:16 Albuterol 2.5 Mg/3 Ml Nebu IH Q4HRT PRN Shortness Of Breath Atenolol 50 mg 07/07/21 23:00 07/09/21 10:28 Atenolol 50 Mg Tab PO 50 mg QDAY MITZY Administration Enoxaparin Sodium 40 mg 07/08/21 10:00 07/09/21 10:28 Enoxaparin 40 Mg/0.4 Ml Inj SUB-Q 40 mg QDAY MITZY Administration Famotidine 20 mg 07/07/21 23:45 07/09/21 10:28 Famotidine 20 Mg/2 Ml Inj IV 20 mg BID MITZY Administration Hydralazine HCl 5 mg 07/07/21 23:25 Hydralazine 20 Mg/1 Ml Inj IV Q4H PRN Hypertension Sodium Chloride 1,000 mls @ 42 mls/hr 07/07/21 23:30 07/08/21 22:16 Nacl 0.9% 1000 Ml IV 42 mls/hr DIRECT MITZY Administration Ceftriaxone Sodium 2 gm in 100 mls @ 200 mls/hr 07/09/21 10:00 07/09/21 10:28 Rocephin/Ns 2 Gm/100 Ml IV 200 mls/hr Q24H MITZY Administration Protocol Insulin Human Isoph/Insulin Regular 10 unit 07/08/21 17:00 07/09/21 10:28 Insulin Nph/Regular 70/30 Inj SUB-Q 10 unit BIDDIAB MITZY Administration Insulin Human Lispro 0 unit 07/08/21 07:30 07/09/21 10:29 Insulin Lispro 100 Unit/Ml SUB-Q 3 unit ACHS MITZY Administration Protocol Magnesium Hydroxide 30 ml 07/07/21 23:16 Magnesium Hydroxide (Mom) Oral Liqd Udc PO Q4H PRN Constipation Metoclopramide HCl 10 mg 07/07/21 23:16 Metoclopramide 10 Mg/2 Ml Inj IV Q6H PRN Nausea And Vomiting Morphine Sulfate 2 mg 07/07/21 23:16 Morphine 2 Mg/1 Ml Inj IV Q4H PRN Pain, Moderate (4-6) Naloxone HCl 0.1 mg 07/07/21 23:16 Naloxone 0.4 Mg/1 Ml Inj IV Q2MIN PRN Res Rate </= 8 or 02 SAT < 92% Ondansetron HCl 4 mg 07/07/21 23:16 Ondansetron 4 Mg/2 Ml Inj IV Q8H PRN Nausea And Vomiting Oxycodone/Acetaminophen 1 tab 07/07/21 23:16 Oxycodone /Acetaminophen 5-325mg Tab PO Q6H PRN Pain, Moderate (4-6) Senna 8.6 mg 07/07/21 23:16 Sennosides 8.6 Mg Tab PO Q12HR PRN Constipation Sodium Chloride 10 ml 07/08/21 10:00 07/09/21 10:29 Sodium Chloride 0.9% 10 Ml Flush Syringe IV 10 ml BID MITZY Administration Trazodone HCl 50 mg 07/07/21 23:25 Trazodone 50 Mg Tab PO QHS PRN Insomnia
[2021-07-09] MEDS: SODIUM CHLORIDE 0.9% 1000 ML 1,000 ML IV SCH (21:39)
[2021-07-10] MEDS: INSULIN LISPRO 100 UNIT/ML SUB-Q SCH ×4 (10:30→22:14)
[2021-07-10] MEDS: INSULIN NPH/REGULAR 70/30 INJ SUB-Q SCH ×2 (10:30→17:45)
[2021-07-10] MEDS: FAMOTIDINE 20 MG/2 ML INJ IV SCH ×2 (10:31→22:14)
[2021-07-10] MEDS: atenoloL 50 MG TAB PO SCH (10:31)
[2021-07-10] MEDS: ENOXAPARIN 40 MG/0.4 ML INJ SUB-Q SCH (10:31)
[2021-07-10] MEDS: cefTRIAXone/NS 2 GM/100 ML 2 GM/100 ML BAG IV SCH (10:33)
--- NOTE | 2021-07-10 17:44 | Progress Note ---
Assessment and Plan Assessment and plan: --Urine cultures positive for gram-negative rods Current Visit: Yes Status: Acute Continue current empiric antibiotics Follow culture sensitivities and adjust -- Pyelonephritis Current Visit: Yes Status: Acute Plan to address problem: Started on antibiotic and IV hydration urine culture gram-negative rods CT of the abdomen/pelvispositive for pyelonephritis --COVID-19 test negative Current Visit: Yes Status: Acute Santoro PCR test negative DC isolation, supportive care -- Uncontrolled hypertension Current Visit: Yes Status: Acute Plan to address problem: Monitor blood pressure Resume home antihypertensive As needed hydralazine -- Diabetes mellitus, new onset Current Visit: Yes Status: Acute Plan to address problem: Patient's blood sugars in 300s Increase insulin Novolin 70/30 to 14 units twice a day and adjust as needed Patient is normal no need home anti hypoglycemia Patient's hemoglobin A1c is 11.7 Diabetic education nutrition education prior to discharge Possible home health nurse for disease monitoring at discharge -- Non compliance w medication regimen Current Visit: Yes Status: Acute Plan to address problem: Discussed importance of compliance with medical regimen Patient voiced understanding -- Tobacco abuse Current Visit: Yes Status: Acute Plan to address problem: Discussed tobacco use cessation Patient admits tobacco use about half a pack daily 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 Patient voiced understanding -- Leukocytosis Current Visit: Yes Status: Acute Plan to address problem: Likely secondary to UTI Elevated lactic acidcontinue antibiotic therapy and gentle IV hydration Monitor WBC --Morbid obesity ; BMI 43.1 advised diet modification exercise as tolerated and weight reduction when medically stable Also advised lifestyle changes And check with bariatric consultation for weight reduction program as o utpatient --DVT prophylaxis Current Visit: Yes Status: Acute Plan to address problem: Subcutaneous Lovenox We will closely monitor the patient and adjust management as needed Plan of care reviewed with the patient and her nurse 07/09/2021; Urine cultures positive for gram-negative rods Follow culture sensitivities, adjust antibiotics Patient advised lifestyle changes dietary modification Exercise as tolerated and weight reduction when stable 07/10/2021; Urine cultures positive for E. coli, adjust antibiotics per sensitivities Closely monitor, DC planning, home health services Diabetic nurse for disease monitoring, possible discharge in 1 to 2 days if stable History Interval history: I have seen and examined the patient at the bedside Patient's chart and medications reviewed Patient has mild discomfort suprapubic area while urination Is positive for UTI E. coli, receiving [facility] Hospitalist Physical - Constitutional Vitals: Temp Pulse Resp BP Pulse Ox 98.0 F 79 18 122/67 97 07/10/21 15:41 07/10/21 10:57 07/10/21 15:41 07/10/21 15:41 07/10/21 12:00 General appearance: Present: mild distress, well-nourished, obese - EENT Eyes: Present: PERRL, EOM intact - Neck Neck: Present: supple, normal ROM - Respiratory Respiratory effort: normal Respiratory: bilateral: diminished, rhonchi, negative: rales, wheezing - Cardiovascular Rhythm: regular Heart Sounds: Present: S1 & S2 - Extremities Extremities: no ischemia, No edema - Abdominal General gastrointestinal: soft, non-tender, non-distended, normal bowel sounds - Integumentary Integumentary: Present: clear, warm - Psychiatric Psychiatric: appropriate mood/affect, cooperative - Neurologic Neurologic: CNII-XII intact, moves all extremities Results - Labs CBC & Chem 7: 07/08/21 05:18 07/08/21 05:18 Labs: Laboratory Last Values WBC 10.7 K/mm3 (4.5-11.0) 07/08/21 05:18 RBC 4.29 M/mm3 (3.65-5.03) 07/08/21 05:18 Hgb 14.1 gm/dl (10.1-14.3) 07/08/21 05:18 Hct 41.0 % (30.3-42.9) 07/08/21 05:18 MCV 96 fl (79-97) 07/08/21 05:18 MCH 33 pg (28-32) H 07/08/21 05:18 MCHC 34 % (30-34) 07/08/21 05:18 RDW 13.1 % (13.2-15.2) L 07/08/21 05:18 Plt Count 230 K/mm3 (140-440) 07/08/21 05:18 Lymph % (Auto) 28.8 % (13.4-35.0) 07/08/21 05:18 [place] % (Auto) 7.2 % (0.0-7.3) 07/08/21 05:18 Eos % (Auto) 0.8 % (0.0-4.3) 07/08/21 05:18 Baso % (Auto) 0.4 % (0.0-1.8) 07/08/21 05:18 Lymph # (Auto) 3.1 K/mm3 (1.2-5.4) 07/08/21 05:18 [place] # (Auto) 0.8 K/mm3 (0.0-0.8) 07/08/21 05:18 Eos # (Auto) 0.1 K/mm3 (0.0-0.4) 07/08/21 05:18 Baso # (Auto) 0.0 K/mm3 (0.0-0.1) 07/08/21 05:18 Seg Neutrophils % 62.8 % (40.0-70.0) 07/08/21 05:18 Seg Neutrophils # 6.7 K/mm3 (1.8-7.7) 07/08/21 05:18 Sodium 136 mmol/L (137-145) L 07/08/21 05:18 Potassium 4.1 mmol/L (3.6-5.0) 07/08/21 05:18 Chloride 102.8 mmol/L (98-107) 07/08/21 05:18 Carbon Dioxide 21 mmol/L (22-30) L 07/08/21 05:18 Anion Gap 16 mmol/L 07/08/21 05:18 BUN 11 mg/dL (7-17) 07/08/21 05:18 Creatinine 0.6 mg/dL (0.6-1.2) 07/08/21 05:18 Estimated GFR > 60 ml/min 07/08/21 05:18 BUN/Creatinine Ratio 18 % 07/08/21 05:18 Glucose 399 mg/dL (65-100) H 07/08/21 05:18 POC Glucose 189 mg/dL (70-105) H 07/10/21 15:38 Hemoglobin A1c 11.7 % (4-6) H 07/08/21 00:02 Lactic Acid 1.40 mmol/L (0.7-2.0) 07/08/21 00:02 Calcium 8.8 mg/dL (8.4-10.2) 07/08/21 05:18 Total Bilirubin 0.50 mg/dL (0.1-1.2) 07/08/21 05:18 AST 12 units/L (5-40) 07/08/21 05:18 ALT 14 units/L (7-56) 07/08/21 05:18 Alkaline Phosphatase 90 units/L (35-129) 07/08/21 05:18 Total Protein 7.8 g/dL (6.3-8.2) 07/08/21 05:18 Albumin 3.8 g/dL (3.9-5) L 07/08/21 05:18 Albumin/Globulin Ratio 1.0 % 07/08/21 05:18 Urine Color Yellow (Yellow) 07/07/21 Unknown Urine Turbidity Cloudy (Clear) 07/07/21 Unknown Urine pH 6.0 (5.0-7.0) 07/07/21 Unknown Ur Specific [place] 1.023 (1.003-1.030) 07/07/21 Unknown Urine Protein 30 mg/dl mg/dL (Negative) 07/07/21 Unknown Urine Glucose (UA) >=500 mg/dL (Negative) 07/07/21 Unknown Urine Ketones Neg mg/dL (Negative) 07/07/21 Unknown Urine Blood Mod (Negative) 07/07/21 Unknown Urine Nitrite Neg (Negative) 07/07/21 Unknown Urine Bilirubin Neg (Negative) 07/07/21 Unknown Urine Urobilinogen < 2.0 mg/dL (<2.0) 07/07/21 Unknown Ur Leukocyte Esterase Lg (Negative) 07/07/21 Unknown Urine WBC (Auto) > 182.0 /HPF (0.0-6.0) H 07/07/21 Unknown Urine RBC (Auto) 32.0 /HPF (0.0-6.0) 07/07/21 Unknown U Epithel Cells (Auto) 6.0 /HPF (0-13.0) 07/07/21 Unknown Urine Bacteria (Auto) 1+ /HPF (Negative) 07/07/21 Unknown Urine WBC Clumps 3+ /HPF 07/07/21 Unknown Urine Yeast (Budding) 2+ /HPF 07/07/21 Unknown Coronavirus (PCR) Negative (Negative) 07/08/21 10:00 Blood Type B POSITIVE 07/08/21 00:02 Antibody Screen Negative 07/08/21 00:02 Microbiology: Microbiology 07/07/21 20:22 Peripheral/Venous Blood Culture - Preliminary Escherichia Coli 07/09/21 05:35 Stool Stool Culture - Preliminary 07/07/21 Unknown Urine,Clean Catch Urine Culture - Final 07/07/21 20:22 Peripheral/Venous Blood Culture - Preliminary NO GROWTH AFTER 48 HOURS [place]/IV: Voiding Method Toilet Active Medications - Current Medications Current Medications: Generic Name Dose Route Start Last Admin Trade Name Freq PRN Reason Stop Dose Admin Acetaminophen 650 mg 07/07/21 23:16 07/09/21 21:31 Acetaminophen 325 Mg Tab PO 650 mg Q4H PRN Administration Pain MILD(1-3)/Fever >100.5/CERDA Al Hydrox/Mg Hydrox/Simethicone 30 ml 07/07/21 23:16 Alum-Mag Hydroxide-Simethicone [phone]/5ml Oral Liqd 30 Ml PO Q4H PRN Indigestion Albuterol 2.5 mg 07/07/21 23:16 Albuterol 2.5 Mg/3 Ml Nebu IH Q4HRT PRN Shortness Of Breath Atenolol 50 mg 07/07/21 23:00 07/10/21 10:31 Atenolol 50 Mg Tab PO 50 mg QDAY MITZY Administration Enoxaparin Sodium 40 mg 07/08/21 10:00 07/10/21 10:31 Enoxaparin 40 Mg/0.4 Ml Inj SUB-Q 40 mg QDAY MITZY Administration Famotidine 20 mg 07/07/21 23:45 07/10/21 10:31 Famotidine 20 Mg/2 Ml Inj IV 20 mg BID MITZY Administration Hydralazine HCl 5 mg 07/07/21 23:25 Hydralazine 20 Mg/1 Ml Inj IV Q4H PRN Hypertension Sodium Chloride 1,000 mls @ 42 mls/hr 07/07/21 23:30 07/09/21 21:39 Nacl 0.9% 1000 Ml IV 42 mls/hr DIRECT MITZY Administration Ceftriaxone Sodium 2 gm in 100 mls @ 200 mls/hr 07/09/21 10:00 07/10/21 10:33 Rocephin/Ns 2 Gm/100 Ml IV 200 mls/hr Q24H MITZY Administration Protocol Insulin Human Isoph/Insulin Regular 14 unit 07/10/21 17:00 Insulin Nph/Regular 70/30 Inj SUB-Q BIDDIAB MITZY Insulin Human Lispro 0 unit 07/08/21 07:30 07/10/21 12:58 Insulin Lispro 100 Unit/Ml SUB-Q 2 unit ACHS [facility] Administration Protocol Magnesium Hydroxide 30 ml 07/07/21 23:16 Magnesium Hydroxide (Mom) Oral Liqd Udc PO Q4H PRN Constipation Metoclopramide HCl 10 mg 07/07/21 23:16 Metoclopramide 10 Mg/2 Ml Inj IV Q6H PRN Nausea And Vomiting Morphine Sulfate 2 mg 07/07/21 23:16 Morphine 2 Mg/1 Ml Inj IV Q4H PRN Pain, Moderate (4-6) Naloxone HCl 0.1 mg 07/07/21 23:16 Naloxone 0.4 Mg/1 Ml Inj IV Q2MIN PRN Res Rate </= 8 or 02 SAT < 92% Ondansetron HCl 4 mg 07/07/21 23:16 Ondansetron 4 Mg/2 Ml Inj IV Q8H PRN Nausea And Vomiting Oxycodone/Acetaminophen 1 tab 07/07/21 23:16 07/10/21 11:54 Oxycodone /Acetaminophen 5-325mg Tab PO 1 tab Q6H PRN Administration Pain, Moderate (4-6) Senna 8.6 mg 07/07/21 23:16 Sennosides 8.6 Mg Tab PO Q12HR PRN Constipation Sodium Chloride 10 ml 07/08/21 10:00 07/10/21 10:31 Sodium Chloride 0.9% 10 Ml Flush Syringe IV 10 ml BID MITZY Administration Trazodone HCl 50 mg 07/07/21 23:25 Trazodone 50 Mg Tab PO QHS PRN Insomnia
[2021-07-10] MEDS: SODIUM CHLORIDE 0.9% 1000 ML 1,000 ML IV SCH (17:48)
[2021-07-11] MEDS: INSULIN LISPRO 100 UNIT/ML SUB-Q SCH ×4 (08:48→21:08)
[2021-07-11] MEDS: INSULIN NPH/REGULAR 70/30 INJ SUB-Q SCH ×2 (08:48→16:09)
[2021-07-11] MEDS: atenoloL 50 MG TAB PO SCH (10:31)
[2021-07-11] MEDS: FAMOTIDINE 20 MG TAB PO SCH ×2 (10:31→21:08)
[2021-07-11] MEDS: ENOXAPARIN 40 MG/0.4 ML INJ SUB-Q SCH (10:31)
[2021-07-11] MEDS: cefTRIAXone/NS 2 GM/100 ML 2 GM/100 ML BAG IV SCH (10:31)
[2021-07-11] MEDS: FAMOTIDINE 20 MG/2 ML INJ IV SCH (11:09)
--- NOTE | 2021-07-11 12:46 | Progress Note ---
Assessment and Plan Assessment and plan: --Urine cultures positive for gram-negative rods/E. coli Current Visit: Yes Status: Acute Continue current antibiotic Rocephin Cultures pansensitive Will transition to oral antibiotics when patient is medically stable -- Pyelonephritis Current Visit: Yes Status: Acute Started on antibiotic and IV hydration urine culture E. coli, continue Rocephin Transition to oral when medically stable CT of the abdomen/pelvispositive for pyelonephritis --COVID-19 test negative Current Visit: Yes Status: Acute Santoro PCR test negative DC isolation, supportive care -- Uncontrolled hypertension Current Visit: Yes Status: Acute Well controlled today ,monitor blood pressure Adjust dosages as needed only -- Diabetes mellitus, new onset Current Visit: Yes Status: Acute Patient's blood sugars in 300s Increase insulin Novolin 70/30 to 14 units twice a day and adjust as needed Patient is normal no need home anti hypoglycemia Patient's hemoglobin A1c is 11.7 Diabetic education nutrition education prior to discharge Possible home health nurse for disease monitoring at discharge -- Non compliance w medication regimen Current Visit: Yes Status: Acute Discussed importance of compliance with medical regimen Patient voiced understanding -- Tobacco abuse Current Visit: Yes Status: Acute Discussed tobacco use cessation Patient admits tobacco use about half a pack daily 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 Patient voiced understanding -- Leukocytosis Current Visit: Yes Status: Acute Likely secondary to UTI Elevated lactic acidcontinue antibiotic therapy and gentle IV hydration Monitor WBC --Morbid obesity ; BMI 43.1 advised diet modification exercise as tolerated and weight reduction when medically stable Also advised lifestyle changes And check with bariatric consultation for weight reduction program as outpatient --DVT prophylaxis Current Visit: Yes Status: Acute Subcutaneous Lovenox We will closely monitor the patient and adjust management as needed Plan of care reviewed with the patient and her nurse 07/09/2021; Urine cultures positive for gram-negative rods Follow culture sensitivities, adjust antibiotics Patient advised lifestyle changes dietary modification Exercise as tolerated and weight reduction when stable 07/10/2021; Urine cultures positive for E. coli, adjust antibiotics per sensitivities Closely monitor, DC planning, home health services Diabetic nurse for disease monitoring, possible discharge in 1 to 2 days if stable 07/11/21; Urine cultures positive for E. coli. Pansensitive Continue Rocephin, transition to oral antibiotics New onset diabetes, diabetic education, diabetic diet education Home health nurse for disease monitoring at discharge History Interval history: I have seen and examined the patient at the bedside today Patient feels better, still has mild discomfort while urinating and suprapubic area Vital signs Hospitalist Physical - Constitutional Vitals: Temp Pulse Resp BP Pulse Ox 98.2 F 68 16 136/76 96 07/11/21 11:56 07/11/21 11:56 07/11/21 11:56 07/11/21 11:56 07/11/21 11:56 General appearance: Present: mild distress, well-nourished, obese - EENT Eyes: Present: PERRL, EOM intact - Neck Neck: Present: supple, normal ROM - Respiratory Respiratory effort: normal Respiratory: bilateral: diminished, rhonchi, negative: rales, wheezing - Cardiovascular Rhythm: regular Heart Sounds: Present: S1 & S2 - Extremities Extremities: no ischemia, No edema - Abdominal General gastrointestinal: soft, non-tender, non-distended, normal bowel sounds - Integumentary Integumentary: Present: clear, warm - Psychiatric Psychiatric: appropriate mood/affect, cooperative - Neurologic Neurologic: CNII-XII intact, moves all extremities Results - Labs CBC & Chem 7: 07/08/21 05:18 07/08/21 05:18 Labs: Laboratory Last Values WBC 10.7 K/mm3 (4.5-11.0) 07/08/21 05:18 RBC 4.29 M/mm3 (3.65-5.03) 07/08/21 05:18 Hgb 14.1 gm/dl (10.1-14.3) 07/08/21 05:18 Hct 41.0 % (30.3-42.9) 07/08/21 05:18 MCV 96 fl (79-97) 07/08/21 05:18 MCH 33 pg (28-32) H 07/08/21 05:18 MCHC 34 % (30-34) 07/08/21 05:18 RDW 13.1 % (13.2-15.2) L 07/08/21 05:18 Plt Count 230 K/mm3 (140-440) 07/08/21 05:18 Lymph % (Auto) 28.8 % (13.4-35.0) 07/08/21 05:18 [place] % (Auto) 7.2 % (0.0-7.3) 07/08/21 05:18 Eos % (Auto) 0.8 % (0.0-4.3) 07/08/21 05:18 Baso % (Auto) 0.4 % (0.0-1.8) 07/08/21 05:18 Lymph # (Auto) 3.1 K/mm3 (1.2-5.4) 07/08/21 05:18 [place] # (Auto) 0.8 K/mm3 (0.0-0.8) 07/08/21 05:18 Eos # (Auto) 0.1 K/mm3 (0.0-0.4) 07/08/21 05:18 Baso # (Auto) 0.0 K/mm3 (0.0-0.1) 07/08/21 05:18 Seg Neutrophils % 62.8 % (40.0-70.0) 07/08/21 05:18 Seg Neutrophils # 6.7 K/mm3 (1.8-7.7) 07/08/21 05:18 Sodium 136 mmol/L (137-145) L 07/08/21 05:18 Potassium 4.1 mmol/L (3.6-5.0) 07/08/21 05:18 Chloride 102.8 mmol/L (98-107) 07/08/21 05:18 Carbon Dioxide 21 mmol/L (22-30) L 07/08/21 05:18 Anion Gap 16 mmol/L 07/08/21 05:18 BUN 11 mg/dL (7-17) 07/08/21 05:18 Creatinine 0.6 mg/dL (0.6-1.2) 07/08/21 05:18 Estimated GFR > 60 ml/min 07/08/21 05:18 BUN/Creatinine Ratio 18 % 07/08/21 05:18 Glucose 399 mg/dL (65-100) H 07/08/21 05:18 POC Glucose 153 mg/dL (70-105) H 07/11/21 11:45 Hemoglobin A1c 11.7 % (4-6) H 07/08/21 00:02 Lactic Acid 1.40 mmol/L (0.7-2.0) 07/08/21 00:02 Calcium 8.8 mg/dL (8.4-10.2) 07/08/21 05:18 Total Bilirubin 0.50 mg/dL (0.1-1.2) 07/08/21 05:18 AST 12 units/L (5-40) 07/08/21 05:18 ALT 14 units/L (7-56) 07/08/21 05:18 Alkaline Phosphatase 90 units/L (35-129) 07/08/21 05:18 Total Protein 7.8 g/dL (6.3-8.2) 07/08/21 05:18 Albumin 3.8 g/dL (3.9-5) L 07/08/21 05:18 Albumin/Globulin Ratio 1.0 % 07/08/21 05:18 Urine Color Yellow (Yellow) 07/07/21 Unknown Urine Turbidity Cloudy (Clear) 07/07/21 Unknown Urine pH 6.0 (5.0-7.0) 07/07/21 Unknown Ur Specific [place] 1.023 (1.003-1.030) 07/07/21 Unknown Urine Protein 30 mg/dl mg/dL (Negative) 07/07/21 Unknown Urine Glucose (UA) >=500 mg/dL (Negative) 07/07/21 Unknown Urine Ketones Neg mg/dL (Negative) 07/07/21 Unknown Urine Blood Mod (Negative) 07/07/21 Unknown Urine Nitrite Neg (Negative) 07/07/21 Unknown Urine Bilirubin Neg (Negative) 07/07/21 Unknown Urine Urobilinogen < 2.0 mg/dL (<2.0) 07/07/21 Unknown Ur Leukocyte Esterase Lg (Negative) 07/07/21 Unknown Urine WBC (Auto) > 182.0 /HPF (0.0-6.0) H 07/07/21 Unknown Urine RBC (Auto) 32.0 /HPF (0.0-6.0) 07/07/21 Unknown U Epithel Cells (Auto) 6.0 /HPF (0-13.0) 07/07/21 Unknown Urine Bacteria (Auto) 1+ /HPF (Negative) 07/07/21 Unknown Urine WBC Clumps 3+ /HPF 07/07/21 Unknown Urine Yeast (Budding) 2+ /HPF 07/07/21 Unknown Coronavirus (PCR) Negative (Negative) 07/08/21 10:00 Blood Type B POSITIVE 07/08/21 00:02 Antibody Screen Negative 07/08/21 00:02 Microbiology: Microbiology 07/07/21 20:22 Peripheral/Venous Blood Culture - Preliminary NO GROWTH AFTER 72 HOURS 07/07/21 20:22 Peripheral/Venous Blood Culture - Preliminary Escherichia Coli 07/09/21 05:35 Stool Stool Culture - Preliminary 07/07/21 Unknown Urine,Clean Catch Urine Culture - Final [place]/IV: Voiding Method Toilet Active Medications - Current Medications Current Medications: Generic Name Dose Route Start Last Admin Trade Name Freq PRN Reason Stop Dose Admin Acetaminophen 650 mg 07/07/21 23:16 07/09/21 21:31 Acetaminophen 325 Mg Tab PO 650 mg Q4H PRN Administration Pain MILD(1-3)/Fever >100.5/CERDA Al Hydrox/Mg Hydrox/Simethicone 30 ml 07/07/21 23:16 Alum-Mag Hydroxide-Simethicone [phone]/5ml Oral Liqd 30 Ml PO Q4H PRN Indigestion Albuterol 2.5 mg 07/07/21 23:16 Albuterol 2.5 Mg/3 Ml Nebu IH Q4HRT PRN Shortness Of Breath Atenolol 50 mg 07/07/21 23:00 07/11/21 10:31 Atenolol 50 Mg Tab PO 50 mg QDAY MITZY Administration Enoxaparin Sodium 40 mg 07/08/21 10:00 07/11/21 10:31 Enoxaparin 40 Mg/0.4 Ml Inj SUB-Q 40 mg QDAY MITZY Administration Famotidine 20 mg 07/11/21 11:00 07/11/21 10:31 Famotidine 20 Mg Tab PO 20 mg BID MITZY Administration Hydralazine HCl 5 mg 07/07/21 23:25 Hydralazine 20 Mg/1 Ml Inj IV Q4H PRN Hypertension Sodium Chloride 1,000 mls @ 42 mls/hr 07/07/21 23:30 07/10/21 17:48 Nacl 0.9% 1000 Ml IV 42 mls/hr DIRECT MITZY Administration Ceftriaxone Sodium 2 gm in 100 mls @ 200 mls/hr 07/09/21 10:00 07/11/21 10:31 Rocephin/Ns 2 Gm/100 Ml IV 07/22/21 10:29 200 mls/hr Q24H MITZY Administration Protocol Insulin Human Isoph/Insulin Regular 14 unit 07/10/21 17:00 07/11/21 08:48 Insulin Nph/Regular 70/30 Inj SUB-Q 14 unit BIDDIAB MITZY Administration Insulin Human Lispro 0 unit 07/08/21 07:30 07/11/21 11:58 Insulin Lispro 100 Unit/Ml SUB-Q 1 unit ACHS MITZY Administration Protocol Magnesium Hydroxide 30 ml 07/07/21 23:16 Magnesium Hydroxide (Mom) Oral Liqd Udc PO Q4H PRN Constipation Metoclopramide HCl 10 mg 07/07/21 23:16 Metoclopramide 10 Mg/2 Ml Inj IV Q6H PRN Nausea And Vomiting Morphine Sulfate 2 mg 07/07/21 23:16 Morphine 2 Mg/1 Ml Inj IV Q4H PRN Pain, Moderate (4-6) Naloxone HCl 0.1 mg 07/07/21 23:16 Naloxone 0.4 Mg/1 Ml Inj IV Q2MIN PRN Res Rate </= 8 or 02 SAT < 92% Ondansetron HCl 4 mg 07/07/21 23:16 Ondansetron 4 Mg/2 Ml Inj IV Q8H PRN Nausea And Vomiting Oxycodone/Acetaminophen 1 tab 07/07/21 23:16 07/10/21 11:54 Oxycodone /Acetaminophen 5-325mg Tab PO 1 tab Q6H PRN Administration Pain, Moderate (4-6) Senna 8.6 mg 07/07/21 23:16 Sennosides 8.6 Mg Tab PO Q12HR PRN Constipation Sodium Chloride 10 ml 07/08/21 10:00 07/11/21 10:32 Sodium Chloride 0.9% 10 Ml Flush Syringe IV 10 ml BID MITZY Administration Trazodone HCl 50 mg 07/07/21 23:25 Trazodone 50 Mg Tab PO QHS PRN Insomnia
[2021-07-11] MEDS: SODIUM CHLORIDE 0.9% 1000 ML 1,000 ML IV SCH (16:09)
[2021-07-12] MEDS: INSULIN LISPRO 100 UNIT/ML SUB-Q SCH ×2 (08:26→13:04)
[2021-07-12] MEDS: INSULIN NPH/REGULAR 70/30 INJ SUB-Q SCH (08:28)
[2021-07-12 08:35] VITALS: BP 148/75
[2021-07-12] MEDS: FAMOTIDINE 20 MG TAB PO SCH (10:38)
[2021-07-12] MEDS: atenoloL 50 MG TAB PO SCH (10:38)
[2021-07-12] MEDS: ENOXAPARIN 40 MG/0.4 ML INJ SUB-Q SCH (10:38)
[2021-07-12] MEDS: cefTRIAXone/NS 2 GM/100 ML 2 GM/100 ML BAG IV SCH (11:22)
--- NOTE | 2021-07-12 12:58 | Discharge Summary ---
Providers - Providers Date of Admission: 07/08/21 17:29 Date of discharge: 07/12/21 Attending physician: RADHA BAH 07/11/21 16:40 Consult to Dietitian/Nutrition [CONS] Routine Physician Instructions: Reason For Exam: Reason for Consult: Diet education Primary care physician: [employer] Hospitalization Reason for admission: Abdominal pain/burning micturition/urinary tract infection Condition: Stable Pertinent studies: CT abdomen and pelvis Hospital course: 56-year-old female patient was admitted through emergency room with urinary symptoms, flank pain burning micturition Patient also has history of hypertension and depression, initially evaluated CT abdomen and pelvis findings consistent with pyelonephritis Admitted to the hospital symptomatically managed with IV fluids and antibiotics blood cultures urine cultures were requested and urine cultures were positive f or E. coli, pansensitive. Patient was started on Rocephin during his hospital stay, patient also noted to have new onset diabetes mellitus, blood sugars, blood pressures closely monitored and medications optimized. Patient's hemoglobin A1c is 11.7, received short-acting as well as long-acting insulin with significant improvement However patient does not have resources and insurance,And requests oral medications, will be discharging her with Metformin and strongly advised to follow-up with primary care physician for further evaluation management, patient is seen diabetic education and nutrition education prior to discharge Patient symptoms significantly improved today patient is comfortable no new complaints vital signs stable physical examination is unremarkable Advised smoking cessation advised nicotine patch Advised diet modification exercise as tolerated and weight reduction when medically stable Patient is hemodynamically and clinically stable at discharge Case management to set up home health nurse for disease monitoring as needed Discharge diagnosis: --E. coli urinary tract infection Current Visit: Yes Status: Acute Continue current antibiotic Rocephin Cultures pansensitive Will transition to oral antibiotics when patient is medically stable -- Pyelonephritis Current Visit: Yes Status: Acute Started on antibiotic and IV hydration urine culture E. coli, continue Rocephin Transition to oral when medically stable CT of the abdomen/pelvispositive for pyelonephritis --Sepsis secondary to urinary tract infection/pyelonephritis Current Visit: Yes Status: Acute Continue Rocephin, discharged on Cipro total of 14 days --COVID-19 test negative Current Visit: Yes Status: Acute Santoro PCR test negative DC isolation, supportive care -- Uncontrolled hypertension Current Visit: Yes Status: Acute Well controlled today ,monitor blood pressure Adjust dosages as needed only -- Diabetes mellitus, new onset Current Visit: Yes Status: Acute Patient's blood sugars in 300s Increase insulin Novolin 70/30 to 14 units twice a day and adjust as needed Patient's hemoglobin A1c is 11.7 Diabetic education nutrition education prior to discharge Possible home health nurse for disease monitoring at discharge Patient is hesitant about using insulin and requested oral hypoglycemics We will discharge on Metformin low-dose, she will follow with primary care physician for further management -- Non compliance w medication regimen Current Visit: Yes Status: Acute Discussed importance of compliance with medical regimen Patient voiced understanding -- Tobacco abuse Current Visit: Yes Status: Acute Discussed tobacco use cessation Patient admits tobacco use about half a pack daily 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 coli urinary tract infection. Sepsis secondary to urinary tract infection. Pyelonephritis. new onset diabetes mellitus. Ongoing tobacco use. Obesity BMI 33.4. Hypertension. Covid test negative Time spent for discharge: 35 min Core Measure Documentation - Palliative Care Palliative Care/ Comfort Measures: Not Applicable - Core Measures Any of the following diagnoses?: none Exam - Constitutional Vitals: Temp Pulse Resp BP Pulse Ox 98.2 F 64 20 148/75 99 07/12/21 07:39 07/12/21 10:38 07/12/21 07:39 07/12/21 10:38 07/12/21 10:00 General appearance: Present: no acute distress, well-nourished - EENT Eyes: Present: PERRL, EOM intact - Neck Neck: Present: supple, normal ROM - Respiratory Respiratory effort: normal Respiratory: bilateral: diminished, negative: rales, rhonchi, wheezing - Cardiovascular Rhythm: regular Heart Sounds: Present: S1 & S2 - Extremities Extremities: no ischemia, No edema - Abdominal General gastrointestinal: Present: soft, non-tender, non-distended, normal bowel sounds - Integumentary Integumentary: Present: clear, warm - Musculoskeletal Musculoskeletal: strength equal bilaterally - Psychiatric Psychiatric: appropriate mood/affect, cooperative - Neurologic Neurologic: moves all extremities Plan Activity: advance as tolerated Diet: diabetic Additional Instructions: Strongly advised to comply with medications diet and follow-up visits. Advised exercise as tolerated and weight reduction when you are stable. Follow with primary care physician in 1 week. If you have worsening symptoms contact MD or go to emergency room. Advised plenty of fluids Follow up with: PRIMARY CARE, [Primary Care Provider] - 3-5 Days Prescriptions: Ciprofloxacin HCl 500 mg PO BID #20 tablet metFORMIN [Glucophage] 500 mg PO QDAY #30 tab Famotidine [Pepcid] 20 mg PO BID #30 tablet atenoloL [Tenormin] 50 mg PO QDAY #30 tablet Other Discharge Orders: Glucometer (Amb) Location: None Selected Glucometer supplies[Amb] Location: None Selected
== END 2021-07-12 15:18 | disposition home or self-care (01) | DRG 872 ==
LOC: ED 15:40 → 3A 21:28 → 4A 07-08 07:52 → OBSVTOIN 07-08 17:29 → 4A 07-08 19:26
PROVIDERS: ADMIT Internal Medicine Geriatric Medicine; ATTEND Internal Medicine
DX: A41.51 Sepsis due to Escherichia coli [E. coli] (principal); N10 Acute pyelonephritis; E66.01 Morbid (severe) obesity due to excess calories; Z20.822 Contact with and (suspected) exposure to COVID-19; I10 Essential (primary) hypertension; F17.200 Nicotine dependence, unspecified, uncomplicated; F32.9 Major depressive disorder, single episode, unspecified; E11.9 Type 2 diabetes mellitus without complications; Z91.14 Patient's other noncompliance with medication regimen; Z71.6 Tobacco abuse counseling; Z68.33 Body mass index [BMI] 33.0-33.9, adult
CPT/HCPCS: 36415; 74176; 80053; 81001; 82140; 82962; 83036; 85025; 86850; 86900; 86901; 87040; 87045; 87076; 87086; 87186; 99406; G0378; J0696; J1650; J1815; J2270; J2405; J7030; U0003

== ENCOUNTER 2022-02-03 09:20 | Outpatient (CLI) | payer OTHER ==
--- NOTE | 2022-02-03 10:13 | XRay Report ---
LUMBOSACRAL SPINE 3 VIEWS INDICATION: BACK PAIN. COMPARISON: None. IMPRESSION: Normal alignment. 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 There i s mild to moderate diffuse facet arthropathy. Mild hypertrophic changes are noted at L2-3 and L3-4 le vels. No evidence for fracture or bone lesion. The SI joints are unremarkable. Signer Name: Luis Alfredo Zavala Jr, MD Signed: 02/03/2022 10:08 AM Workstation Name: [id number]
== END 2022-02-03 09:21 | disposition home or self-care (01) ==
LOC: XRAY 09:20
PROVIDERS: ATTEND Internal Medicine
DX: M47.817 Spondylosis without myelopathy or radiculopathy, lumbosacral region (principal)
CPT/HCPCS: 72100